=== PATIENT | female | born 1980 | race African-American/Black ===

== ENCOUNTER 2019-08-30 04:06 | Emergency (ER) | payer MEDICAID, OTHER ==
[~2019-08-30] VITALS: Ht 165.1 cm; Wt 122.5 kg
[2019-08-30 04:16] VITALS: BP 165/99
== END 2019-08-30 07:16 | disposition home or self-care (01) ==
LOC: ER 04:06
DX: M54.16 Radiculopathy, lumbar region (principal); E11.9 Type 2 diabetes mellitus without complications; J45.909 Unspecified asthma, uncomplicated; I10 Essential (primary) hypertension

== ENCOUNTER 2021-02-12 15:29 | Emergency (ER) | payer MEDICAID ==
[~2021-02-12] VITALS: Ht 165.1 cm; Wt 127.0 kg
[2021-02-12] MEDS ORDERED: cloNIDine HCL 0.1 MG TAB ONE (15:34)
[2021-02-12] MEDS ORDERED: cloNIDine HCL 0.1 MG TAB PO ONE (16:00)
[2021-02-12 16:24] LABS: Basophils # (auto) 0 10 ^3/uL (0-0.2); Basophils % (auto) 0.5 % (0.0-2.0); Eosinophils # (auto) 0.4 10 ^3/uL (0-0.8); Eosinophils % (auto) 3.7 % (0.0-7.0); Hematocrit 31.4 % (36.0-46.0); Hemoglobin 10.9 g/dL (12.2-16.2); Lymphocytes # (auto) 2.5 10 ^3/uL (0.4-5.4); Mean Corpuscular Hgb Conc. 34.6 g/dL (32.0-36.0); Mean Corpuscular Volume 89.4 fL (80.0-100.0); Monocytes # (auto) 0.6 10 ^3/uL (0-1.3); Monocytes % (auto) 6.7 % (0.0-12.0); Neutrophils % (auto) 63.1 % (37.0-80.0); Red Blood Cells 3.52 10^6/uL (4.0-5.20); Red Cell Distribution Width 14.1 % (11.8-14.3); White Blood Cell 9.5 10^3/uL (4.4-10.8)
[2021-02-12] MEDS ORDERED: ASPirin 81 mg TAB PO ONE (16:30)
[2021-02-12] MEDS ORDERED: LABETALOL HCL 5 MG/ML 4ML SYRINGE IV ONE (16:30)
[2021-02-12] MEDS ORDERED: SODIUM CHLORIDE 0.9% 1,000 ML IV ONE (16:30)
[2021-02-12 16:42] LABS: Albumin 3.8 g/dL (3.4-5.0); Anion Gap 7 (5-15); Blood Urea Nitrogen 9 mg/dL (7-18); Calcium 8.5 mg/dL (8.5-10.1); Carbon Dioxide 27 mmol/L (21-32); Chloride 105 mmol/L (98-107); Glucose 147 mg/dL (74-106); Potassium 3.8 mmol/L (3.5-5.1); Sodium 139 mmol/L (136-145)
[2021-02-12 16:48] LABS: Alanine Aminotransferase 25 U/L (13-56); Alkaline Phosphatase 62 U/L (45-117); Aspartate Aminotransferase 12 U/L (15-37); BUN/Creatinine Ratio 13.2; Bilirubin, Total 0.5 mg/dL (0.2-1.0); GFR African American 123 mL/min; GFR Non-African American 102 mL/min; Total Protein 8.2 g/dL (6.4-8.2)
[2021-02-12 17:38] LABS: Beta HCG, Quantitative < 1 mlU/mL (1-3)
[2021-02-12 17:41] VITALS: BP 147/80
== END 2021-02-12 19:12 | disposition home or self-care (01) ==
LOC: ER 15:34
DX: I10 Essential (primary) hypertension (principal); E11.9 Type 2 diabetes mellitus without complications; E66.9 Obesity, unspecified; J45.909 Unspecified asthma, uncomplicated; Z68.42 Body mass index [BMI] 45.0-49.9, adult
CPT/HCPCS: 36415; 71046; 80053; 83735; 84443; 84484; 84702; 85025; 93005

== ENCOUNTER 2021-04-12 09:35 | Emergency (ER) | payer MEDICAID ==
[~2021-04-12] VITALS: Ht 165.1 cm; Wt 126.1 kg
[2021-04-12 10:41] VITALS: BP 143/89
== END 2021-04-12 13:09 | disposition home or self-care (01) ==
LOC: ER 09:35
DX: M23.92 Unspecified internal derangement of left knee (principal); M25.462 Effusion, left knee; E66.01 Morbid (severe) obesity due to excess calories; I10 Essential (primary) hypertension; E11.9 Type 2 diabetes mellitus without complications; J45.909 Unspecified asthma, uncomplicated; Z68.42 Body mass index [BMI] 45.0-49.9, adult
CPT/HCPCS: 73562